=== PATIENT | female | born 1955 | race Caucasian/White ===

== ENCOUNTER → 2022-12-25 10:35 | Outpatient (BNVA) | payer MEDICARE, SELFPAY | PROVIDERS: Family Provider Family Medicine; PCP Family Medicine; Visit Provider Podiatrist Foot & Ankle Surgery | DX: M79.671 Pain in right foot (principal); M76.61 Achilles tendinitis, right leg | CPT/HCPCS: 73630; 99203 ==

== ENCOUNTER → 2023-01-15 09:59 | Outpatient (BNVA) | payer MEDICARE, SELFPAY | PROVIDERS: Family Provider Family Medicine; PCP Family Medicine; Visit Provider Podiatrist Foot & Ankle Surgery | DX: M76.61 Achilles tendinitis, right leg | CPT/HCPCS: 99213 ==